=== PATIENT | male | born 1945 | race Caucasian/White ===

== ENCOUNTER 2021-03-30 08:16 | Day surgery (SDC) | payer MEDICARE, SELFPAY ==
[2021-03-23 12:40] VITALS: BMI 28.1
--- NOTE | 2021-03-26 07:59 | MHC.SHP ---
Pre-Procedural Eval Section A Date of Service: 03/26/21 The patient is an INPATIENT: No Changes since office visit: No Cold of Flu in the past 2 weeks, No New Medical Problems, No Changes in Medication and No Patient answered all questions The History & Physical has been completed within 30 days and I have reviewed it.: Yes Section B Chief Complaint: glaucoma Allergies: Allergies Allergy/AdvReac Type Severity Reaction Status Date / Time No Known Allergies Allergy Unverified 12/06/19 18:59 [No Known Allergies*] Plan Diagnosis/Plan: Unchanged I have reviewed the history and physical and performed a pertinent physical examination on my patient. No changes have occurred unless specified.
[2021-03-30 08:33] VITALS: BP 187/85; PULSE 65; RESP 16; TEMP 36.6; O2SAT 98
[2021-03-30] MEDS: Lactated Ringers 1,000 ML 50 ML IVCONT (08:33)
--- NOTE | 2021-03-30 09:09 | HO.ANESPROP2 ---
HPI - Anesthesia Eval Consult details Narrative: 75 M for repostion of IRIS CAD , 13 years ago stent. no chest pain or extertional SOB PMFSH Past Medical History Medical History (Updated 03/23/21 @ 12:45 by Kelli Weber RN) Anxiety Elevated cholesterol Glaucoma HTN (hypertension) Family History Family history of problems with anesthesia: No Surgical History Surgical History (Updated 03/23/21 @ 12:37 by Kelli Weber RN) Cataract extraction status of left eye History of cardiac cath History of umbilical hernia repair History of Problems with Anesthesia: No Social History Social History Are you a primary care transitions manager to a significant other at home: No Patient Tobacco Use Status: Former Tobacco user Quit Date: Tobacco use type: Cigarette Are you DNR?: No Advance Directives: No Advance Directives Information Provided: Yes Advance Directives on File: No Meds Allergies Allergy/AdvReac Type Severity Reaction Status Date / Time No Known Allergies Allergy Unverified 12/06/19 18:59 [No Known Allergies*] Active Medications: Current Medications Povidone Iodine (Povidone Iodine 5 % Ophth Soln 30 Ml Bottle) 1 appl EYE-LEFT PREOP PRN PRN Reason: Pre-Op Surgical Implant Prophy Home Medications Medication Instructions Recorded Confirmed Last Taken Type aspirin 81 mg tablet,delayed 81 mg PO DAILY 03/23/21 03/23/21 Unknown History release atorvastatin 80 mg tablet 1 tab PO DAILY 03/23/21 03/23/21 Unknown History latanoprost 0.005 % eye drops drp OPHTHALMIC (EYE) 03/23/21 Unknown History losartan 50 mg tablet 1 tab PO DAILY 03/23/21 03/23/21 Unknown History metoprolol tartrate 50 mg tablet 1 tab PO BID 03/23/21 03/23/21 Unknown History timolol maleate 0.5 % eye drops drp OPHTHALMIC (EYE) 03/23/21 Unknown History Exam Exam Date and Time: March 30, [id number] Height,Weight and Vital Signs: Height 5 ft 8 in Weight 83.915 kg Last Vital Signs Temp 97.8 F 03/30/21 08:33 Pulse 65 03/30/21 08:33 Resp 16 03/30/21 08:33 BP 187/85 H 03/30/21 08:33 Pulse Ox 98 01/10/22 08:33 Airway Mallampati Class: IV Loose/Missing/Broken Teeth: Yes (Crowns , missing ) Heart: rrr Lungs: bl breath sounds Assessment and Plan Assessment Anesthesia Assessment: Anesthesia Plan Discussed Final Anesthetic Review Family History of Problems with Anesthesia: No History of Problems with Anesthesia: No NPO: Yes ASA Class: II Final Preanesthetic Review: Aniya Risks/Benef Reviewed Patient Risk: Intermediate Procedure Risk: Intermediate Anesthetic Plan Anesthetic Plan: MAC: Disposition: Standard PACU
[2021-03-30 11:04] VITALS: BP 125/65; PULSE 60; RESP 20; TEMP 36.1; O2SAT 95
[2021-03-30 11:18] VITALS: BP 156/55; PULSE 62; RESP 18; TEMP 36.1; O2SAT 96
--- NOTE | 2021-03-30 13:09 | OP_ITS ---
SURGEON: Jose Cruz Diaz MD PREOPERATIVE DIAGNOSIS: POSTOPERATIVE DIAGNOSIS: Prolapsed iris, previous trabeculectomy, left eye. PROCEDURE PERFORMED: Repositioning the iris. ESTIMATED BLOOD LOSS: COMPLICATIONS: ANESTHESIA: MAC with local. ASSISTANTS: SPECIMENS: INDICATION FOR SURGERY: Prolapsed iris, previous trabeculectomy, left eye. DESCRIPTION OF PROCEDURE: After obtaining informed consent, the patient was brought to the operating room suite in the supine position. The left eye was prepped and draped in usual sterile fashion. Attention was directed to the left eye and the microscope was positioned. A paracentesis was created followed by instillation of MPF preservative-free lidocaine 0.5 cc. Bicarb was instilled into the anterior chamber. Viscoelastic was then placed into the anterior chamber. Capsulotomy forceps were utilized to grab the iris out from the trabeculectomy site. Viscoelastic was instilled to ensure the iris away from the ostium of the trabeculectomy. 0.1 mL of Vigamox was instilled into the anterior chamber and 0.15 mL injection of cataract was given sub-tenon. The patient tolerated the procedure well and will be seen in followup. MD DOMONIQUE Chavez/MODL / [id number]
== END 2021-03-30 11:56 | disposition home or self-care (01) ==
PROVIDERS: Visit Provider Ophthalmology
PROC: (CPT 66680; principal; 2021-03-30 10:10)
DX: H40.1431 Capsular glaucoma with pseudoexfoliation of lens, bilateral, mild stage (principal); H21.89 Other specified disorders of iris and ciliary body; Z96.1 Presence of intraocular lens; I10 Essential (primary) hypertension; E78.00 Pure hypercholesterolemia, unspecified; F41.1 Generalized anxiety disorder; E11.9 Type 2 diabetes mellitus without complications; Z79.82 Long term (current) use of aspirin; Z79.899 Other long term (current) drug therapy
CPT/HCPCS: 66680; J2250; J3010; J3300